=== PATIENT | female | born 1980 | race Caucasian/White ===

== ENCOUNTER → 2021-03-04 | Outpatient (CLI) | payer OTHER ==
--- NOTE | 2021-03-08 14:01 | MM ---
Reason for exam: screening (asymptomatic). Baseline mammogram. Physical Findings: Nurse did not find any significant physical abnormalities on exam. MG Screening Mammo w CAD Bilateral CC and MLO view(s) were taken. The breast tissue is extremely dense which could obscure a lesion on mammography. There are benign appearing round calcifications in the right breast. There is no discrete abnormality. ASSESSMENT: Negative, BI-RAD 1 RECOMMENDATION: Routine screening mammogram of both breasts in 1 year.
== END | disposition home or self-care (01) ==
LOC: RADMAMWWP 13:30
PROVIDERS: ATTEND Family Medicine
DX: Z12.31 Encounter for screening mammogram for malignant neoplasm of breast (principal)
CPT/HCPCS: 77067

== ENCOUNTER → 2021-07-09 | Outpatient (CLI) | payer OTHER ==
--- NOTE | 2021-07-09 08:15 | US ---
EXAMINATION TYPE: US pelvic complete DATE OF EXAM: 07/09/2021 COMPARISON: US 2016 CLINICAL HISTORY: N92.4 EXCESSIVE BLEEDING IN THE PREMENOPAUSAL. Heavy periods x couple months, gravi da 3, para 2, 1, history of uterine ablation, tubal ligation and TECHNIQUE: . Transabdominal sonographic images of the pelvis were acquired. Date of LMP: 06/26/2021 EXAM MEASUREMENTS: Uterus: 8.3 x 5.7 x 7.4 cm Endometrial Stripe: 1.2 cm Right Ovary: 4.0 x 1.9 x 2.6 cm Left Ovary: 4.0 x 1.9 x 3.1 cm 1. Uterus: retroverted, heterogeneous 2. Endometrium: Measured 3. Right Ovary: wnl 4. Left Ovary: wnl 5. Bilateral Adnexa: wnl 6. Posterior cul-de-sac: wnl Abnormal thickening of endometrial stripe for late proliferative phase of menstrual cycle. Suboptimal study as transvaginal investigation not performed to better evaluate and characterize. IMPRESSION: As above. Suboptimal study without transvaginal investigation. Consider dilatation and cu rettage to further evaluate.
== END | disposition home or self-care (01) ==
LOC: RADUSWWP 07:10
PROVIDERS: ATTEND Family Medicine
DX: N92.4 Excessive bleeding in the premenopausal period (principal)
CPT/HCPCS: 76856

== ENCOUNTER → 2023-02-15 | Outpatient (CLI) | payer OTHER ==
--- NOTE | 2023-02-16 12:29 | MM ---
Reason for Exam: Screening (asymptomatic). Last mammogram was performed 2 year(s) and 0 month(s) ago. Patient History: Menarche at age 11. First Full-Term at age 21. Hysterectomy at age 41. Risk Values: Charlene 5 year model risk: 0.7%. NCI Lifetime model risk: 8.7%. Prior Study Comparison: 03/04/2021 Bilateral Screening Mammogram, [facility]. Tissue Density: The breast tissue is extremely dense which could obscure a lesion on mammography. Findings: Analyzed By CAD. There is no suspicious group of microcalcifications or new suspicious mass in either breast. Overall Assessment: Benign, BI-RAD 2 Management: Screening Mammogram of both breasts in 1 year. . Patient should continue monthly self-breast exams. A clinical breast exam by your physician is recommended on an annual basis. This exam should not preclude additional follow-up of suspicious palpable abnormalities. Note on Charlene scores and lifetime risk: 1. A Charlene score greater than 3% is considered moderate risk. If this is the case, consider specialist referral to assess eligibility for a risk reducing agent. 2. If overall lifetime risk for the development of breast cancer is 20% or higher, the patient may qualify for future screening with alternating mammogram and breast MRI. Electronically signed and approved by: Stan Good M.D. Radiologis
== END | disposition home or self-care (01) ==
LOC: RADMAMWWP 07:24
PROVIDERS: ATTEND Family Medicine
DX: Z12.31 Encounter for screening mammogram for malignant neoplasm of breast (principal)
CPT/HCPCS: 77063; 77067

== ENCOUNTER → 2023-08-22 | Outpatient (CLI) | payer OTHER ==
--- NOTE | 2023-08-22 14:01 | XR ---
EXAMINATION TYPE: XR knee limited RT DATE OF EXAM: 08/22/2023 CLINICAL HISTORY: pain TECHNIQUE: 2 views of the right knee are obtained. COMPARISON: None. FINDINGS: There is no acute fracture/dislocation. The tri-compartment joint spaces appear within no rmal limits. The overlying soft tissue appears unremarkable. IMPRESSION: There is no acute fracture or dislocation.ICD 10 NO FRACTURE, INITIAL EVALUATION
== END | disposition home or self-care (01) ==
LOC: RADXRMAIN 12:58
PROVIDERS: ATTEND Family Medicine
DX: M25.561 Pain in right knee (principal)